=== PATIENT | female | born 1995 | race African-American/Black ===

== ENCOUNTER 2018-06-24 09:17 | Emergency (ER) | payer OTHER ==
[~2018-06-24] VITALS: Ht 152.4 cm; Wt 75.8 kg
[2018-06-24 09:42] LABS: URINE BILIRUBIN NEGATIVE (Negative); URINE BLOOD NEGATIVE (Negative); URINE CLARITY CLEAR; URINE COLOR YELLOW; URINE GLUCOSE-RANDOM* NEGATIVE (Negative); URINE KETONES 3+ (Negative); URINE LEUKOCYTES NEGATIVE (Negative); URINE NITRITE NEGATIVE (Negative); URINE PROTEIN (DIPSTICK) TRACE (Negative); URINE SPECIFIC GRAVITY 1.025 (1.005-1.035)
[2018-06-24 09:48] LABS: URINE REDUCING SUBSTANCE NEGATIVE
[2018-06-24 09:59] LABS: ABSOLUTE NEUTROPHILS 3.9 thou/uL (1.4-8.2); BASOPHILS 0.8 % (0.0-2.0); EOSINOPHILS 0.2 % (0.0-3.0); HEMATOCRIT 40.7 % (37.0-47.0); HEMOGLOBIN 13.3 gm/dL (12.0-15.0); LYMPHOCYTES 19.9 % (24.0-44.0); MCH 27.9 pg (26.0-34.0); MCHC 32.8 g/dL (28.0-37.0); MCV 85.2 fL (80.0-100.0); MONOCYTES 7.7 % (1.0-8.0); PLATELET COUNT 304 thou/uL (150-400); POLYS 71.4 % (36.0-66.0); RBC 4.77 mil/uL (4.20-5.00); RDW 12.3 % (10.5-14.5); WBC 5.5 thou/uL (4.0-11.0)
[2018-06-24 10:07] LABS: CALCIUM 9.4 mg/dL (8.5-10.1); CREATININE 0.7 mg/dL (0.6-1.0); POTASSIUM 3.1 mmol/L (3.5-5.1)
[2018-06-24] MEDS ORDERED: VITAMIN B-625 MG PO (11:05)
[2018-06-24 11:32] VITALS: BP 115/76
== END 2018-06-24 11:32 | disposition home or self-care (01) ==
LOC: ER 09:17
PROVIDERS: Emergency Medicine
DX: O21.8 Other vomiting complicating pregnancy (principal); Z3A.01 Less than 8 weeks gestation of pregnancy

== ENCOUNTER 2018-07-12 17:39 | Emergency (ER) | payer OTHER ==
[~2018-07-12] VITALS: Ht 149.9 cm; Wt 74.8 kg
[~2018-07-12 17:39] MED LIST: VITAMIN B-625 MG PO
[2018-07-12 19:04] LABS: URINE BILIRUBIN NEGATIVE (Negative); URINE BLOOD NEGATIVE (Negative); URINE CLARITY CLEAR; URINE COLOR YELLOW; URINE GLUCOSE-RANDOM* NEGATIVE (Negative); URINE KETONES TRACE (Negative); URINE LEUKOCYTES-REFLEX NEGATIVE (Negative); URINE NITRITE-REFLEX NEGATIVE (Negative); URINE PROTEIN (DIPSTICK) NEGATIVE (Negative); URINE SPECIFIC GRAVITY 1.015 (1.005-1.035); URINE UROBILINOGEN 0.2 E.U./dl (0.2-1.0)
[2018-07-12] MEDS ORDERED: PEPCID20 MG PO (19:49)
[2018-07-12] MEDS ORDERED: ZOFRAN ODT4 MG DISSOLVE (19:49)
[2018-07-12] MEDS ORDERED: DICLEGIS DR 101 EACH PO (19:52)
[2018-07-12 20:05] LABS: ABSOLUTE NEUTROPHILS 4.2 thou/uL (1.4-8.2); BASOPHILS 1.1 % (0.0-2.0); EOSINOPHILS 1.8 % (0.0-3.0); HEMATOCRIT 35.4 % (37.0-47.0); LYMPHOCYTES 32.1 % (24.0-44.0); MCV 85.3 fL (80.0-100.0); MONOCYTES 9.1 % (1.0-8.0); PLATELET COUNT 290 thou/uL (150-400); POLYS 55.9 % (36.0-66.0); RBC 4.15 mil/uL (4.20-5.00); RDW 12.4 % (10.5-14.5); WBC 7.5 thou/uL (4.0-11.0)
[2018-07-12 20:20] LABS: CALCIUM 9.1 mg/dL (8.5-10.1); CREATININE 0.5 mg/dL (0.6-1.0)
[2018-07-12 20:23] LABS: ALBUMIN 3.7 g/dL (3.4-5.0); TOTAL BILIRUBIN 0.2 mg/dL (<0.1-1.0); TOTAL PROTEIN 7.1 g/dL (6.4-8.2)
[2018-07-12 20:33] VITALS: BP 107/41
== END 2018-07-12 20:34 | disposition home or self-care (01) ==
LOC: ER 17:39
PROVIDERS: Emergency Medicine
DX: O26.891 Other specified pregnancy related conditions, first trimester (principal); Z3A.09 9 weeks gestation of pregnancy; R10.31 Right lower quadrant pain; R11.2 Nausea with vomiting, unspecified